=== PATIENT | male | born 1980 | race Caucasian/White ===

== ENCOUNTER 2016-12-06 19:34 | Emergency (ER) | payer MEDICAID ==
[~2016-12-06] VITALS: Ht 185.4 cm; Wt 60.0 kg
[~2016-12-06 19:34] MED LIST: HYDR-882 PO; METH500T97 PO; METO25TA91 PO; OXYC-229 PO; TRAM50TA2 PO
[2016-12-06] MEDS ORDERED: ACET650S21 PO (19:54)
[2016-12-06] MEDS ORDERED: KETOROLAC 30 MG/1 ML IM ONE (20:00)
[2016-12-06 20:05] VITALS: BP 122/85
[2016-12-06] MEDS ORDERED: KETOROLAC 30 MG/1 ML ONE (20:08)
== END 2016-12-06 21:06 | disposition home or self-care (01) ==
LOC: ED 20:45
DX: S39.012A Strain of muscle, fascia and tendon of lower back, initial encounter (principal); M51.36 Other intervertebral disc degeneration, lumbar region; M54.42 Lumbago with sciatica, left side; G43.909 Migraine, unspecified, not intractable, without status migrainosus
CPT/HCPCS: 72110; 99284; J7512

== ENCOUNTER 2017-01-07 13:19 | Emergency (ER) | payer MEDICAID ==
[~2017-01-07] VITALS: Ht 185.4 cm; Wt 63.3 kg
[~2017-01-07 13:19] MED LIST changes: +ACET650S21 PO
[2017-01-07 13:20] VITALS: BP 137/91
== END 2017-01-07 14:22 | disposition home or self-care (01) ==
LOC: ED 14:16
DX: K02.9 Dental caries, unspecified (principal); S02.5XXA Fracture of tooth (traumatic), initial encounter for closed fracture; G43.909 Migraine, unspecified, not intractable, without status migrainosus; F17.200 Nicotine dependence, unspecified, uncomplicated; M54.30 Sciatica, unspecified side; X58.XXXA Exposure to other specified factors, initial encounter; Y93.89 Activity, other specified; Y92.89 Other specified places as the place of occurrence of the external cause; Y99.8 Other external cause status; Z88.6 Allergy status to analgesic agent
CPT/HCPCS: 99283

== ENCOUNTER 2017-10-04 11:02 | Emergency (ER) | payer MEDICAID ==
[~2017-10-04] VITALS: Ht 185.4 cm; Wt 71.8 kg
[~2017-10-04 11:02] MED LIST changes: -OXYC-229 PO; +OXYC-307 PO
[2017-10-04] MEDS ORDERED: HYDROcodone/APAP 5/325 TABLET ONE (11:54)
[2017-10-04] MEDS: ONDANSETRON 4 MG TABLET PO ONE ×2 (11:55→11:57)
[2017-10-04] MEDS ORDERED: HYDROcodone/APAP 5/325 TABLET PO ONE (12:00)
[2017-10-04 12:39] VITALS: BP 128/78
== END 2017-10-04 12:40 | disposition home or self-care (01) ==
LOC: ED 12:28
DX: S40.012A Contusion of left shoulder, initial encounter (principal); S50.02XA Contusion of left elbow, initial encounter; G43.909 Migraine, unspecified, not intractable, without status migrainosus; W20.8XXA Other cause of strike by thrown, projected or falling object, initial encounter; Y93.89 Activity, other specified; Y92.89 Other specified places as the place of occurrence of the external cause; Y99.8 Other external cause status
CPT/HCPCS: 99284; Q0162